=== PATIENT | female | born 2000 | race Caucasian/White ===

== ENCOUNTER 2022-12-07 14:44 | Emergency (ER) | payer BC, SELFPAY ==
[2022-12-07 14:44] VITALS: BP 147/92; PULSE 108; RESP 16; TEMP 36.5; O2SAT 99; BMI 37.8
--- NOTE | 2022-12-07 14:51 | PC.NURSE ---
ER MD Nelson at
--- NOTE | 2022-12-07 14:55 | HMH.EDGENADL ---
Discharge Plan Disposition Patient Disposition: Home, Self-Care Condition: Good Prescriptions Prescriptions: No Action levetiracetam [Keppra] 1,000 mg Tablet 1,000 mg PO BID Referrals Follow up/Referrals: Provider,Referral, [Primary Care Provider] - See instructions Activity Restrictions/Add. Instructions Additional Instructions/Restrictions: You were evaluated in the emergency department today. Please continue taking your Keppra at home as prescribed. Make sure that you are getting adequate sleep. Refrain from alcohol, drug, or excess caffeine use. Contact your neurologist and asked them if you should increase your dosing. Return to the emergency department for any new or worsening symptoms. Clinical Impressions Clinical Impression: Breakthrough seizure Discharge ED Provider: Jordyn Nelson General Adult HPI General Chief complaint: Recheck/Abnormal Lab/Rx Stated complaint: concerned was going to have a seizure Time Seen by Provider: 12/07/22 14:54 History of Present Illness HPI narrative: This patient is a 22-year-old female with a history of epilepsy managed on Keppra 1000 mg twice daily presented to the emergency department for evaluation with concern for preseizure aura. Patient reports that she was driving on the road when she fell like she was going to have a seizure. She states that she had her typical aura of heart racing, lightheadedness, feel like she was floating, and tension in her neck. She stated that she has not had a seizure since June 2021, and she states that she had one then because she missed a dose of Keppra. She states she has not been compliant with her medications and missed no doses, however she notes that she has had decreased sleep because she does have a new baby at home. She also notes that she had alcohol over the weekend. She denies any recent fevers, headache, vision changes, chest pain, cough, congestion, abdominal pain, nausea, vomiting, changes bowel movements, dysuria, or other concerns. She took an extra dose of Keppra while in the car whenever she noticed the symptoms after she had pulled over. She has taken effectively 2000 mg so far today. She states that after she took this dose, she felt improvement in her symptoms and currently feels at her baseline without any concerns. Related Data Home Medications Medication Instructions Recorded Confirmed levetiracetam 1,000 mg tablet 1,000 mg PO BID epilepsy 12/07/22 12/07/22 (Keppra) Allergies Allergy/AdvReac Type Severity Reaction Status Date / Time No Known Allergies Allergy Verified 12/07/22 15:[address] [facility] Disclaimer: The information contained in this section may have been updated after the patient was seen, as this information can be updated by other users. Social History Smoking Status: Never smoker alcohol intake: current current occupational status: employed Travel in the last 8 weeks: None ROS Obtained: Yes All systems reviewed & no additional complaints except as documented 14 point review of systems obtained and negative except as mentioned in HPI. Physical Exam General General appearance: alert and in no apparent distress Head Head exam: atraumatic and normocephalic Eye Eye exam: Present normal appearance, PERRL and EOMI ENT ENT exam: Present normal exam, normal oropharynx and mucous membranes moist Neck Neck exam: Present normal inspection, full ROM and trachea midline; Absent tenderness Chest Chest inspection: Present normal inspection and symmetric chest wall rise Respiratory Respiratory exam: Present normal lung sounds bilaterally; Absent respiratory distress, wheezes or accessory muscle use Cardiovascular Cardiovascular exam: Present regular rate and normal rhythm Abdominal Exam Abdominal exam: Present soft; Absent distention, tenderness or guarding Extremities Exam Extremities exam: Present normal inspection an
--- NOTE | 2022-12-07 14:59 | ECG_ITS ---
APPROVED REPORT Exam: Resting ECG HR:101 bpm ECG Measurements Heart Rate [address] 118 P 61 QRSd 90 QRS 55 QT 335 T 70 QTc 393 Conclusion SINUS TACHYCARDIA WITH SHORT CT INTERVAL NONSPECIFIC T-WAVE ABNORMALITY ABNORMAL RHYTHM ECG UNCONFIRMED REPORT Electronically signed by : Jonathan Canada MD 12/07/2022 21:12:18
[2022-12-07 15:00] VITALS: BP 144/97; PULSE 106; O2SAT 98
--- NOTE | 2022-12-07 15:00 | PC.NURSE ---
pt matthew bed rails padded
[2022-12-07 15:31] VITALS: BP 126/99; PULSE 111; O2SAT 98
[2022-12-07 16:00] VITALS: BP 122/73; PULSE 106; O2SAT 97
[2022-12-07 16:11] LABS: Basophils # 0.1 K/mm3 (0-0.2); Basophils % 0.5 % (0.1-2.0); Eosinophils # 0.1 K/mm3 (0.0-0.4); Eosinophils % 1.4 % (0.1-12.0); Hemoglobin 13.5 g/dL (12.2-16.2); Lymphocytes # 2.7 K/mm3 (0.7-4.5); Lymphocytes % 29.4 % (10-50); Mean Corpuscular HGB Conc 32.9 g/dL (31.8-35.4); Mean Corpuscular Hemoglobin 29.1 pg (27.0-31.2); Mean Corpuscular Volume 88.4 fl (81-99); Monocytes # 0.5 K/mm3 (0.1-1.0); Monocytes % 4.9 % (1.7-9.3); Neutrophils # 5.8 K/mm3 (1.8-7.8); Neutrophils % 63.9 % (37.0-80.0); Platelet Count 293 K/mm3 (142-424); Red Blood Count 4.64 M/mm3 (4.20-5.40); Red Cell Distribution Width 15.4 % (11.5-17.5); White Blood Count 9.1 K/mm3 (4.8-10.8)
[2022-12-07 16:21] LABS: Chloride 108 mmol/L (98-107); Potassium 3.7 mmoL/L (3.5-5.1); Sodium 141 mmol/L (136-145)
[2022-12-07 16:24] LABS: Anion Gap 10.7 mEq/L (5-15); Blood Urea Nitrogen 8 mg/dl (7-17); Calcium 8.9 mg/dl (8.4-10.2); Carbon Dioxide 26 mmol/L (22.0-30.0); Creatinine Clearance Estimated 230 mL/min (50-200); Estimated Glomerular Filt Rate 124 ml/min (>60); GFR (African American) 150 ML/MIN (>60); Glucose 98 mg/dl (74-100)
[2022-12-07 16:30] VITALS: BP 112/90
[2022-12-07 16:50] VITALS: BP 115/77; PULSE 88; RESP 18; TEMP 36.7; O2SAT 97
== END 2022-12-07 16:51 | disposition home or self-care (01) ==
PROVIDERS: Emergency Provider Emergency Medicine
DX: G40.919 Epilepsy, unspecified, intractable, without status epilepticus (principal); R00.0 Tachycardia, unspecified
CPT/HCPCS: 36415; 80048; 85025; 93005; 96374; 99285; J1953

== ENCOUNTER → 2024-12-18 09:37 | Outpatient (REF) | payer SELFPAY ==
--- OUTSIDE RECORDS SUMMARY | 2024-11-23 06:45 | XMS_ITS ---
Author Organization [facility] Address [address] [facility] [address] [place] [address] Care Team Providers Care Appellate Law Clerk Name Role Phone Telma Lopez Unavailable [phone] Debra Ashford Unavailable [phone] REASON FOR VISIT Returning Patient: Annual Medications Medication SIG (Take, Route, Frequency, Duration) Notes Start Date End Date Status levETIRAcetam 500 MG Tablet Oral; Duration: 30 Active Citalopram Hydrobromide 20 MG Tablet TAKE 1 TABLET BY MOUTH ONCE DAILY DIRECTED FOR ANXIETY Oral; Duration: 90 Active 28-0.8 MG Tablet 1 tablet Orall y Once a day Active Norethindrone 0.35 MG Tablet 1 tablet Or ally Once a day; Duration: 84 days 11/30/2022 Active Encounters Encounter Location Date Provider Diagnosis [facility]- [address] [place] [address] 11/23/2024 Debra Ashford Plan Of Treatment Next Appt Details Provider Name:Mai Jjkriss, 01/08/2025 01:00:00 PM, [address], [place], [address], Provider Name:Mai Cornejosteff, 01/08/2025 01:30:00 PM, [address], [place], [address], Progress Notes * Gwendolyn JUNIOROB:2000 (24 yo F)Acc No.[id number]:11/23/2024 Progress Note Patient: Clarisse Cash Provider: Tiffanie ASHFORD APRN :2000 A ge:24 Y S ex:Female Date:11/23/2024 Address:[address] [place] [address] [id number] Subjective: * Chief Complaints: * R eturning Patient: Annual * Medications: T akingCitalopram Hydrobromide 20 MG Tablet TAKE 1 TABLET BY MOUTH ONCE DAILY DIRECTED FOR ANXIETY Oral levETIRAcetam 500 MG Tablet Oral Norethindrone 0.35 MG Tablet 1 tablet Orally Once a day ( Vit-Fe Fumarate-FA) 28-0.8 MG Tablet 1 tablet Orally Once a day Taking Citalopram Hydrobromide 20 MG Tablet TAKE 1 TABLET BY MOUTH ONCE DAILY DIRECTED FOR ANXIETY Oral Taking levETIRAcetam 500 MG Tablet Oral Taking Norethindrone 0.35 MG Tablet 1 tablet Orally Once a day Taking ( Vit-Fe Fumarate-FA) 28-0.8 MG Tablet 1 tablet Orally Once a day * Electronic signature of Debra Ashford APRN on 12/18/2024 at 09:40 AM EDT Sign off status: Pending Visit Status: R /S (Rescheduled) * Provider: Tiffanie ASHFORD APRN Date: 11/23/2024 Generated for Amadou hernandez/Daryl/Urvashi on: 12/18/2024 09:40 AM EDT
--- OUTSIDE RECORDS SUMMARY | 2024-11-28 05:30 | XMS_ITS ---
Author Organization [facility] Address [address] [facility] [address] [place] [address] Care Team Providers Care Gate Tender Name Role Phone Telma Lopez Unavailable [phone] Shameka Ryan Unavailable [phone] Allergies No Known Allergies Results Component Value Reference Range Flag Notes Urine Reviewed date:11/28/2024 11:10:34 AM Interpretation:Positive Performing Lab: Notes/Report: Shop Director Line Present: Yes Yes Result: Positive Negative A REASON FOR VISIT home test positive patient does not know LMP Medications Medication SIG (Take, Route, Frequency, Duration) Notes Start Date End Date Status 28-0.8 MG Tablet 1 tablet Orally Once a day Not-Taking/PRN Social History Social History Sexual History: Social Info Question Answer Notes Sexual History Had sex in the past 12 months (vaginal, oral, or anal)? Yes Have you ever had a Sexually transmitted disease ? No Last menstrual period 06/23/2021 Drugs/Alcohol: Social Info Question Answer Notes Drugs Have you used drugs other than those for medical reasons in the past 12 months? No Steroid Use Have you used anabolic (body building) st eroids? No Alcohol Screen Did you have a drink containing alcohol in the past year? No Points 0 Interpretation Negative Vital Signs Blood pressure systolic 122 mm Hg 11/29/19 25 Blood pressure diastolic 72 mm Hg 025 Height 64 in 11/28/2024 Weight 165.8 lbs 11/28/2024 BMI 28.46 kg/m2 11/28/2024 Encounters Encounter Location Date Provider Diagnosis [facility]- [address] [facility] [address] [place] [address] 11/28/2024 Shameka Ryan Encounter for test, result positive Z32.01 Assessments Encounter Date Diagnosis (ICD Code) Assessment Notes Treatment Notes Treatment Clinical Notes Section Notes 11/28/2024 Encounter for test, result positive (ICD-10 - Z32.01) Plan Of Treatment Future Test Test Name Order Date HCG, quantitative 11/28/2024 *US OB Complete Transabdominal/Vaginal 0 11/28/2024 Next Appt Details Follow Up: prn, Reason: US b ased on HCG Provider Name:Mai Sweet, 01/08/2025 01:00:00 PM, [address], [place], [address], Provider Name:Mai Sweet, 01/08/2025 01:30:00 PM, [address], [place], [address], History and Physical Notes * HPI (History of Present Illness) Category 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 She reported uncertainty regarding her last menstrual period, estimating it may have occurred in July or August, and expressed concern about not knowing her exact gestational age. She also noted that she has not taken control for some time, which adds to the uncertainty surrounding her current situation. Her nausea was described by her proxy as a persistent issue, with difficulty eating due to frequent episodes. This symptom has been ongoing since she underwent gastric surgery in August of the previous year, and it has continued to affect her ability to eat comfortably. OB confirmation today. has not started PNV at this time. She is prescribed KEPPRA under the care of neurology and plans to call them today. Examination Category Sub-Category Detail Notes Category Not es General Examination GENERAL: Well Develop ed/Well Nourished, No acute Distress, Oriented to Time, Place, and Person CARDIOPULMONARY: Heart rhythm regular , Lungs clear to auscultation PSYCHIATRIC: Mood Pleasant GASTROINTESTINAL: Abdomen non tender SKIN: No excoriations LYMPH NODES: Inguinal lymph nodes normal, Femoral lymph nodes normal MUSCULOSKELETAL: Gait steady NEUROLOGICAL: Deep tendon reflexes normal Progress Notes * SANDIGwendolynOB:2000 (24 yo F)Acc No.[id number]:11/28/2024 Progress Note Patient: Clarisse Cash Provider: Santi Ryan APRN :2000 A ge:24 Y S ex:Female Date:11/28/2024 Address:[address] [place] [address], [place] [address] Subjective: * Chief Complaints: * h ome test positive patient does not know LMP * HPI: G YN: Clarisse Rai, a 24-year-old female, presented for an acute visit focused on possible and ongoing nausea. She reported uncertainty regarding her last menstrual period, estimating it may have occurred in July or August, and expressed concern about not knowing her exact gestational age. She also noted that she has not taken control for some time, which adds to the uncertainty surrounding her current situation. Her nausea was described by her proxy as a persistent issue, with difficulty eating due to frequent episodes. This symptom has been ongoing since she underwent gastric surgery in August of the previous year, and it has continued to affect her ability to eat comfortably. OB confirmation today. has not started PNV at this time. She is prescribed KEPPRA under the care of neurology and plans to call them today. * ROS: N egative except noted in HPI. 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 Y es L ength Between Cycles: I rregular L ength of Flow: 2 -7 Days S exual Activity/Contraception: C urrently sexually active Y es * OB History: P regnancy History (GPA) Total Pregnancies 6 Full Term 3 Premature 0 AB. Induced 0 AB. Spontaneous 1 AB. Elective 1 AB. Therapeutic 0 Ectopics 0 Multiple Births 0 Living 3 Vaginal Deliveries 3 C-Sections 0 G P : 6 Para: l ivin P regnancy # 1: Cristobal bhatia, 02/02/2019, Female, . P regnancy # 2: Travis coleman, 09/02/2020, Male, . P regnancy # 3: 1 8 week EAB. P regnancy # 4: 0 10/20/22, normal spontaneous vaginal delivery (), male, Baby Weight: 8lb 2oz. P regnancy # 5: Annie CORDOVA, 01/2024. * Surgical History: Gastric sleeve 08/2023 Surgical History verified. * Hospitalization/Major Diagno stic Procedure: L&D - x3 Hospitalization Verified. * Family History: M other: alive. F ather: alive. M aternal Grand Mother: alive. M aternal Grand Father: . P aternal Grand Mother: . P aternal Grand Father: . 2 sister(s) - healthy. 1 son(s) , 1 daughter(s) - healthy. . F amily History Verified.. No family hx of breast, colon, or ovarian cancers; Nothing else documented. * Social History: S exual History: S exual History H ad sex in the past 12 months (vaginal, oral, or anal)? Y es H ave you ever had a Sexually transmitted disease? N o L ast menstrual period 0 06/23/2021 D rugs/Alcohol: D rugs H ave you used drugs other than those for medical reasons in the past 12 months? N o Alcohol Screen D id you have a drink containing alcohol in the past year? N o P oints 0 I nterpretation N egative Steroid Use H ave you used anabolic (body building) steroids? N o S ocial History Verified. * Medications: N ot-Taking/PRNPrenatal( Vit-Fe Fumarate-FA) 28-0.8 MG Tablet 1 tablet Orally Once a day Medication List reviewed and reconciled with the patientNot- Taking/PRN ( Vit-Fe Fumarate-FA) 28-0.8 MG Tablet 1 tablet Orally Once a day Medication List reviewed and reconciled with the patient * Allergies: N .K.D.A.yesAllergies Verified. Objective: * Vitals: B P:122/72mm Hg, Ht: 64 in, Wt:165.8lbs, BMI:28.46Index. * Examination: G eneral Examination: GENERAL: W ell Developed/Well Nourished, No acute Distress, Oriented to Time, Place, and Person. CARDIOPULMONARY: H eart rhythm regular, Lungs clear to auscultation. PSYCHIATRIC: M ood Pleasant. GASTROINTESTINAL: A bdomen non tender. SKIN: N o excoriations. LYMPH NODES: I nguinal lymph nodes normal, Femoral lymph nodes normal. MUSCULOSKELETAL: G ait steady. NEUROLOGICAL: D eep tendon reflexes normal. ? Assessment: * Assessment: 1. E ncounter for test, result positive - Z32.01 (Primary) Plan: * Treatment: Value Reference Range Q uality Control Line Present: Yes Yes - * R esult: Positive A Negative - ?LAB: HCG, quantitative (Ordered for 11/28/2024) ?Imaging: *US OB Complete Transabdominal/Vaginal (Ordered for 11/28/2024) * Procedure Codes: 8 1025 Urine test, by visual color comparison methods * Follow Up: p rn (Reason: US based on HCG) Billing Information: * Visit Code: 81718 Office/Outpatient visit, est patient. * Procedure Codes: 08865 Urine test, by visual color comparison methods. * Sign off status: Completed Visit Status: Jael HK (Check Out) true * Provider: Santi Ryan APRN Date: 0 11/28/2024 Generated for Amadou hernandez/Daryl/eTransmitting on: 0 12/18/2024 09:40 AM EDT
--- OUTSIDE RECORDS SUMMARY | 2024-12-18 09:41 | XMS_ITS | Patient Health Record ---
Author Organization [facility] Address [address] [facility] [address] [place] [address] Care Team Providers Care Cephalometric Analyst Name Role Phone JessicaTelma york Unavailable [phone] Shameka Ryan Unavailable [phone] Debra Ashford Unavailable [phone] Allergies No Known Allergies Results Component Value Reference Range Notes Urine Reviewed date:11/28/2024 11:10:34 AM Interpretation:Positive Performing Lab: Notes/Report: PROGESTERONE Reviewed date:11/29/2024 09:59:08 AM Interpretation:23 Performing Lab: Notes/Report: Progesterone Reference Ranges: Adult Males: 0.0-0.5 ng/mL Adult Femles: Follicular phase 0.1-0.9 ng/mL Ovulation phase 0.1-12.0 ng/mL Luteal phase 1.8-23.9 ng/mL Postmenopausal 0.0-0.1 ng/mL : First Trimester 11.0-44.3 ng/mL Second Trimester 25.4-83.3 ng/mL Third Trimester 58.7-214.0 ng/mL Results may be falsely increased if patient taking Biotin. PROGESTERONE LEVEL 23.40 Lab speci mens received at a [facility].?See result details for the performing location information. HCG, QUANTITATIVE, Reviewed date:11/29/2024 10:12:38 AM Interpretation:9519 Performing Lab: Notes/Report: HCG Ranges by Gestational Age Females - non- premenopausal </= 1mIU/mL HCG Females - postmenopausal </= 7mIU/mL HCG 3 Weeks 5.4 - 72 mIU/mL 4 Weeks 10.2 - 708 mIU/mL 5 Weeks 217 - 8,245 mIU/mL 6 Weeks 152 - 32,177 mIU/mL 7 Weeks 4,059 - 153,767 mIU/mL 8 Weeks 31,366 - 149,094 mIU/mL 9 Weeks 59,109 - 135,901 mIU/mL 10 Weeks 44,186 - 170,409 mIU/mL 12 Weeks 27,107 - 201,615 mIU/mL 14 Weeks 24,302 - 93,646 mIU/mL 15 Weeks 12,540 - 69,747 mIU/mL 16 Weeks 8,904 - 55,332 mIU/mL 17 Weeks 8,240 - 51,793 mIU/mL 18 Weeks 9,649 - 55,271 mIU/mL BETA HCG II, TOTAL 9519.00 Lab speci mens received at a [facility].?See result details for the performing location information. Reason For Referral No Information Medications Medication SIG (Take, Route, Frequency, Duration) Notes Start Date End Date Status 28-0.8 MG Tablet 1 tablet Orall y Once a day; Duration: 90 days Active Social History Social History Sexual History: Social [...] past year? No Points 0 Interpretation Negative Additional Details Category Social Info Options Details Miscellaneous: Caffeine: None Problems Problem Type SNOMED Code ICD Code Onset Dates Problem Status W/U Status Risk Notes Problem Anxiety (34841794) Anxiety (F41.9) Active confirmed Problem Seizure disorder (315651011) Seizure disorder (G40.909) Active confirmed Vital Signs Blood pressure diastolic 72 mm Hg 11/28/2024 Height 64 in 11/28/2024 Blood pressure systolic 122 mm Hg 11/28/2024 Weight 165.8 lbs 11/28/2024 BMI 28.46 kg/m2 11/28/2024 Encounters Encounter Location Date Provider Diagnosis [facility] [address] [facility] [address] [place] [address] 12/12/2024 Shameka Ryan [facility] [address] [facility] [address] [place] [address] 11/28/2024 Shameka Ryan Encounter for test, result positive Z32.01 Assessments Encounter Date Diagnosis (ICD Code) Assessment Notes Treatment Notes Treatment Clinical Notes Section Notes 11/28/2024 Encounter for test, result positive (ICD-10 - Z32.01) Plan Of Treatment Future Test Test Name Order Date HCG, quantitative 11/28/2024 *US OB Complete Transabdominal/Vaginal 0 11/28/2024 Next Appt Details Provider Name:Mai Cornejosteff, 01/08/2025 01:00:00 PM, [address] [facility] [address], [place], [address], Provider Name:Mai Jjkriss, 01/08/2025 01:30:00 PM, [address] [address], [place], [address], Insurance Providers Payer Name Payer Address Payer Phone Subscriber Number Group Number Insured Name Patient Relationship to Insured Coverage Start Date Coverage End Date [facility] [address] [place], [place] [id number] Clarisse Rai Self - patient is the insured Medical (General) History Medical History History ICD Code Depression Hypertension Epilepsy Anxiety Surgical History Surgery Date(Month/Year) Gastric sleeve 08/2023 Hospitalization History Reason Date(Month/Year) L&D - x3
[2024-12-18 09:49] LABS: COC Drug Screen Collection Only
[2024-12-19 05:24] LABS: Hep A Ab, Total Positive (Negative)
[2024-12-19 06:20] LABS: Measles Antibodies, IgG 150.0 AU/mL (Immune >16.4); Mumps Abs, IgG 36.0 AU/mL (Immune >10.9); Rubella Antibodies, IgG 1.29 index (Immune >0.99)
== END ==
LOC: LAB 09:37
CPT/HCPCS: 36415; 86480; 86706; 86708; 86735; 86762; 86765; 86787